=== PATIENT | female | born 1985 | race Caucasian/White ===

== ENCOUNTER 2024-05-26 09:57 | Day surgery (SDC) | payer MEDICARE, OTHER, SELFPAY ==
[2024-05-26 10:14] VITALS: BMI 28.0
[2024-05-26 10:16] VITALS: BP 111/83
[2024-05-26 10:30] VITALS: BP 111/83
[2024-05-26 13:45] VITALS: BP 104/59
[2024-05-26 13:48] VITALS: BP 104/59
[2024-05-26 14:03] VITALS: BP 101/55
--- NOTE | 2024-05-26 14:17 | ITS.CL.IMPLP ---
Retaining Room Cutter - Implant Loop
Implant Loop
Procedure Report:
LINQ IMPLANTED MONITOR REMOVAL
Date of Procedure: May 26, 2024
Primary Care Provider: Dr. Tone eRndon
PROCEDURES:
1. Removal of implanted loop recorder
INDICATION FOR PROCEDURE:
1. Loop Recorder at end of battery longevity
After informed consent was obtained,'time out' was called and confirmed, the patient was prepped and draped in a sterile fashion.
SEDATION: Via the anesthesia department with conscious sedation
Lidocaine with epi was used for local anesthesia. An incision was made along the prior incision and the Linq monitor was carefully dissected from the pocket. The pocket was liberally irrigated with antibiotic solution. The pocket was closed in
the typical fashion.
COMPLICATIONS:
None
CONCLUSIONS:
1. Removal of implanted loop recorder.
RECOMMENDATIONS:
In-Office wound check in 7-14 days.
Copy to: Dr. Tone Rendon
[2024-05-26 14:31] VITALS: BP 102/65
== END 2024-05-26 14:51 | disposition home or self-care (01) ==
LOC: CATH 09:57
PROVIDERS: ATTENDING PHYSICIAN Internal Medicine Cardiovascular Disease; FAMILY PHYSICIAN Family Medicine
DX: Z09 Encounter for follow-up examination after completed treatment for conditions other than malignant neoplasm (principal); R55 Syncope and collapse; G47.33 Obstructive sleep apnea (adult) (pediatric); G43.909 Migraine, unspecified, not intractable, without status migrainosus; E66.01 Morbid (severe) obesity due to excess calories; Z68.42 Body mass index [BMI] 45.0-49.9, adult
CPT/HCPCS: 33286; 33285